=== PATIENT | male | born 1960 | race Caucasian/White ===

== ENCOUNTER 2025-05-30 13:54 | Emergency (ER) | payer OTHER ==
[2025-05-30] MEDS: Lidocaine 1% with EPINEPHrine 1:100,000 20 ML MDV INJECT ONE (14:40)
[2025-05-30] MEDS: Bacitracin Oint 1 GM U/D Packet TOP ONE (14:45)
[2025-05-30] MEDS: Diphtheria,Pertussis(Acell),Tetanus Vaccine 0.5 ML Syringe IM ONE (14:54)
== END 2025-05-30 15:03 | disposition home or self-care (01) ==
LOC: LB.ED 13:54
DX: S51.842A Puncture wound with foreign body of left forearm, initial encounter (principal); Z23 Encounter for immunization; W45.8XXA Other foreign body or object entering through skin, initial encounter
CPT/HCPCS: 90471; 90715; 99283; J2004